=== PATIENT | female | born 1995 | race Hispanic/Latino ===

== ENCOUNTER 2022-06-23 19:43 | Inpatient (IN) | payer OTHER ==
[2022-06-23] MEDS ORDERED: NALOXONE 0.4 MG/1 ML INJ IV PRN (20:36)
[2022-06-23] MEDS ORDERED: miSOPROStol 200 MCG TAB PR PRN (20:36)
[2022-06-23] MEDS ORDERED: PROMETHAZINE 25 MG TAB PO PRN (20:36)
[2022-06-23] MEDS ORDERED: ACETAMINOPHEN 325 MG TAB PO PRN (20:36)
[2022-06-23] MEDS ORDERED: ONDANSETRON 4 MG/2 ML INJ IV PRN (20:36)
[2022-06-23] MEDS ORDERED: OXYTOCIN 10 UNIT/1 ML INJ IM PRN (20:36)
[2022-06-23] MEDS ORDERED: CARBOPROST TROMETHAMINE 250 MCG/1 ML INJ IM PRN (20:36)
[2022-06-23] MEDS ORDERED: BUTORPHANOL 2 MG/1 ML INJ IV PRN (20:36)
[2022-06-23] MEDS ORDERED: METHYLERGONOVINE MALEATE 0.2 MG/ML VIAL IM PRN (20:36)
[2022-06-23] MEDS ORDERED: TERBUTALINE 1 MG/1 ML INJ SUB-Q PRN (20:36)
[2022-06-23] MEDS ORDERED: LOPERAMIDE 2 MG CAP PO PRN (20:36)
[2022-06-23] MEDS ORDERED: LIDOCAINE (2%) 20 MG/1 ML VIAL 20 ML MDV INFILTRATI ONE (20:36)
[2022-06-23] MEDS ORDERED: MINERAL OIL 30 ML ORAL LIQD PO PRN (20:36)
[2022-06-23] MEDS ORDERED: DINOPROSTONE 10 MG VAG SUPP VG SCH (20:36)
--- NOTE | 2022-06-23 20:41 | History and Physical Report ---
History of Present Illness Date of examination: 06/23/22 Date of admission: 06/23/2022 Chief complaint: IOL History of present illness: Pt is a @ 41.3 wks, IOL d/t postdates. She has a history VSD (ventricular septal defect), was followed until 2008 and was then told that she needed no additional follow up. She has had no cardiac complaints this . Her cardiac work up this had no significant abnormalities but cardiology recommended the following: cleared for vaginal delivery monitor for arrhythmia epidural ok medical illustrator evaluation advised 2 days monitor closely for fluid overload telemetry preferred limit NSAIDs FU echo 4-6wks EDC Confirmation: 06/13/2022 Gestational Age: 41.3 weeks on admission Past History : 1 Term Births: 0 Premature Births: 0 Living Children: 0 Para: 0 Mult. Births: 0 Prev : 0 Aborta: 0 Elect. Ab: 0 Spont. Ab: 0 Ectopics: 0 Past Medical History: Reviewed and updated today: Valvular Heart Disease Past Surgical History: Reviewed and updated today: negative Family History Summary: Mother - Has Family History of Diabetes - Entered On: 12/17/2021 MGF - Has Family History of Diabetes - Entered On: 12/17/2021 Social History: Patient is single Smoking History: Patient has never smoked. 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 % Sun Exposure: frequently Family History Risk Factors: Family History of MO in 1 Female Relative Age < 65: no Family History of MO in 1 Male Relative Age < 55: no No Dietary Counseling Reason: pn yes Past Medical History Anesthesia Complications: negative Anemia: negative Autoimmune Disorder: negative Bleeding Disorder: negative Blood Transfusions: negative Breast Disease: negative Diabetes: negative Heart Disease: negative Hypertension: negative Hepatitis/Liver Disease: negative Kidney Disease/UTI: negative Neurologic/Epilepsy/Migraines: negative Phlebitis/Varicosities: negative Psychiatric: negative Pulmonary Disease/Asthma: negative Thyroid Disease: negative Hospitalizations: negative Surgery (Non-customer support coordinator): negative Abnormal PAP: negative CARO Exposure: negative Infertility: negative Uterine Anomaly: negative Uterine Surgery (not C/S): negative Other Gynecologic Problems: negative Social Hx: Patient is single Smoking History: Patient has never smoked. Infection History Hx of STD: chlamydia HIV Risk Eval: no Hepatitis B Risk Eval: low risk Personal hx. of genital herpes: no Partner hx. of genital herpes: no Rash, Viral, or Febrile illness since last LMP? no Varicella/Chicken Pox Status: No TB Risk: no Genetic History Congenital Heart Defect: Mom: yes Dad: no Comments: Patient Jerrell Disease: Mom: no Dad: no Thalassemia Mom: no Dad: no Neural Tube Defect Mom: no Dad: no Down's Syndrome Mom: no Dad: no Toribio-Sachs Mom: no Dad: no Sickle Cell Disease/Trait Mom: no Dad: no Hemophilia Mom: no Dad: no Muscular Dystrophy Mom: no Dad: no Cystic Fibrosis Mom: no Dad: no Jakob Chorea Mom: no Dad: no Mental Retardation Mom: no Dad: no Fragile X Mom: no Dad: no Other Genetic/Chromosomal Disorder Mom: no Dad: no Child w/other defect Mom: no Dad: no Enviromental Exposures Xray Exposure: no Medication, drug, or alcohol use since LMP: no Chemical/Other Exposure: no Exposure to Cat Liter: yes Hx of Parvovirus (Fifth Disease): no Occupational Exposure to Children: none Active Medications (reviewed today): None Current Allergies (reviewed today): No known allergies Past History Past Medical History: other (Ventral Spetal Defect) Past Surgical History: no surgical history Family/Genetic History: none Social history: no significant social history - Obstetrical History Expected Date of Delivery: 06/13/22 Actual Gestation: 41 Week(s) 4 Day(s) : 1 Para: 0 Hx # Term Pregnancies: 0 Number of Pregnancies: 0 Spontaneous Abortions: 0 Induced : 0 Number of Living Children: 0 Medications and Allergies Allergies Allergy/AdvReac Type Severity Reaction Status Date / Time No Known Allergies Allergy Verified 06/23/22 20:49 Review of Systems All systems: negative - Vital Signs Vital signs: Vital Signs Temp Pulse BP 98.1 F 82 112/62 06/23/22 20:32 06/23/22 20:32 06/23/22 20:32 Temp Pulse Resp BP Pulse Ox 98.1 F 82 112/62 06/23/22 20:32 06/23/22 20:32 06/23/22 20:32 Pt denies chest pain, feeling lightheaded/dizzy, and short of breath. - Physical Exam Cardiovascular: Regular rate Lungs: Positive: Normal air movement Abdomen: Positive: normal appearance, soft Genitourinary (Female): Positive: normal external genitalia, normal perenium Vulva: both: normal Uterus: Positive: enlarged (Normal for 41 week gestation. ) Extremities: Positive: normal - Obstetrical FHR: category 1 Uterine Contraction Monitor Mode: External Cervical Dilatation: 1.5 (Per electrophysiology tech) Cervical Effacement Percentage: 50 station: -2 Uterine Contraction Pattern: Irregular Uterine Tone Measurement Phase: Resting Uterine Contraction Intensity: Mild Results Result Diagrams: 06/23/22 20:45 All other labs normal GBS NEGATIVE HBsAg Screen Negative Negative *1 RPR Non Reactive Non Reactive *2 Rubella Antibodies, IgG [L] <0.90 index Immune >0.99 *3 Non-immune <0.90 Equivocal 0.90 - 0.99 Immune >0.99 ABO Grouping O *4 Rh Factor Positive *5 Please note: Prior records for this patient's ABO / Rh type are not available for additional verification. Tests: (4) Toxoplasma Abs IgG/IgM ([id number]) ! Toxoplasma gondii Ab,IgG <3.0 IU/mL 0.0-7.1 *58 Negative <7.2 Equivocal 7.2 - 8.7 Positive >8.7 ! Toxoplasma gondii Ab,IgM <3.0 AU/mL 0.0-7.9 *59 Negative <8.0 Equivocal 8.0 - 9.9 Positive >9.9 ! Comments TOXOA *60 No serological evidence of infection with Toxoplasma. If symptoms persist, submit a new specimen after three weeks. Tests: (5) HB Solu + Rflx [facility] ([id number]) Hemoglobin (Hgb) Solubility Negative Negative *61 Tests: (6) HIV Ab/p24 Ag with Reflex ([id number]) HIV Ab/p24 Ag Screen Non Reactive Non Reactive *62 HIV Negative HIV-1/HIV-2 antibodies and HIV-1 p24 antigen were NOT detected. There is no laboratory evidence of HIV infection. Tests: (7) Varicella-Zoster V Ab, IgG ([id number]) ! Varicella Zoster IgG 292 index Immune >165 *63 Negative <135 Equivocal 135 - 165 Positive >165 A positive result generally indicates exposure to the pathogen or administration of specific immunoglobulins, but it is not indication of active infection or stage of disease. Tests: (8) Varicella-Zoster Ab, IgM ([id number]) ! Varicella-Zoster Ab, IgM [H] 1.20 index 0.00-0.90 *64 Negative <0.91 Borderline 0.91 - 1.09 Positive >1.09 Tests: (9) HCV Antibody reflex to MARICHUY ([id number]) HCV Ab <0.1 s/co ratio 0.0-0.9 *65 Tests: (10) Interpretation: ([id number]) ! Interpretation: SPRCS *66 Negative Not infected with HCV, unless recent infection is suspected or other evidence exists to indicate HCV infection. Assessment and Plan A: 27 y.o. @ 41.3 wks, postdates IOL. History of ventricular septal defect. Rubella non-immune. - Patient Problems (1) Rubella non-immune status, antepartum Current Visit: Yes Status: Acute Plan to address problem: Vaccine . (2) with 41 completed weeks gestation Current Visit: Yes Status: Acute Plan to address problem: Admit to labor and delivery. Initiate IV. Draw admission labs. Pain management: IV pain medication, epidural when desired. Start IOL: Cervidil. (3) History of ventricular septal defect Current Visit: Yes Status: Acute Plan to address problem: Cardiology recommendations: cleared for vaginal delivery monitor for arrhythmia epidural ok medical illustrator evaluation advised 2 days monitor closely for fluid overload telemetry preferred limit NSAIDs FU echo 4-6wks Anesthesia aware of patient admitted for IOL. - Has evaluated patient.
[2022-06-23] MEDS ORDERED: OXYTOCIN DRIP 30 UNITS/500 ML BAG IV SCH (21:00)
[2022-06-23 21:10] LABS: Hemoglobin 12.1 gm/dl (10.1-14.3); Mean Corpuscular HGB Conc 33 % (30-34); Mean Corpuscular Volume 93 fl (79-97); Platelet Count 295 K/mm3 (140-440); Red Blood Count 3.99 M/mm3 (3.65-5.03); Red Cell Distribution Width 14.6 % (13.2-15.2)
--- NOTE | 2022-06-23 22:41 | Event Note ---
Date: 06/23/22 Cervical exam unchanged. Cervidil placed @ 2234. Some coaching required to place medication as patient was not able to tolerate exam.
[2022-06-23] MEDS: LACTATED RINGERS 1,000 ML IV SCH (22:51)
[2022-06-23] MEDS: fentaNYL 100 MCG/2 ML INJ IV PRN (22:52)
[2022-06-24] MEDS: fentaNYL 100 MCG/2 ML INJ IV PRN (01:26)
[2022-06-24] MEDS ORDERED: ePHEDrine SULFATE 50 MG/1 ML INJ IV PRN (03:49)
[2022-06-24] MEDS ORDERED: NALOXONE 0.4 MG/1 ML INJ IV PRN ×2 (03:49→19:27)
--- NOTE | 2022-06-24 03:53 | Anesthesia Consultation ---
Anesthesia Consult and Med Hx Date of service: 06/24/22 - Airway Anesthetic Teeth Evaluation: Poor ROM Head & Neck: Adequate Mental/Hyoid Distance: Adequate Mallampati Class: Class II Intubation Access Assessment: Probably Good - Pulmonary Exam CTA: Yes - Cardiac Exam Cardiac Exam: RRR - Pre-Operative Health Status ASA Pre-Surgery Classification: ASA3 Proposed Anesthetic Plan: Epidural - Pre-Anesthesia Comment Pre-Anesthesia Comments: She has a history VSD (ventricular septal defect), was followed until 2008 and was then told that she needed no additional follow up. She has had no cardiac complaints this . Her cardiac work up this had no significant abnormalities - Pulmonary Hx Smoking: No Hx Asthma: No COPD: No Hx Pneumonia: No - Cardiovascular System Hx Hypertension: No Hx Valvular Heart Disease: Yes (VSD ) Hx Heart Murmur: Yes - Central Nervous System Hx Seizures: No Hx Psychiatric Problems: No - Endocrine Hx Renal Disease: No Hx End Stage Renal Disease: No Hx Hypothyroidism: No Hx Hyperthyroidism: No - Hematic Hx Anemia: No Hx Sickle Cell Disease: No - Other Systems Hx Alcohol Use: No Hx Substance Use: No Hx Obesity: Yes
[2022-06-24] MEDS ORDERED: fentaNYL-BUPIV 2 MCG/ML-0.125% 200 MCG/100 ML BAG EPIDURAL SCH (04:00)
[2022-06-24] MEDS: ePHEDrine SULFATE 50 MG/1 ML INJ IV PRN ×3 (04:27→06:20)
--- NOTE | 2022-06-24 04:39 | Progress Note ---
Labor Epidural - Labor Epidural Start Time: 04:04 Stop Time: 04:15 Performed by:: RANDALL HANCOCK Procedure: Patient is requesting epidural for labor pain. H&P and labs reviewed. Procedure explained, questions answered, consent obtained. Patient placed in sitting position with monitors applied. Timeout performed immediately before start of procedure. Prep/drape in usual sterile fashion. Skin localized 3 mL 1% lidocaine at L[3]-L[4] interspace. 17-gauge Touhy epidural needle advanced to MARIA T with saline at [6] cm x 1 attempt. No blood/CSF noted via epidural needle. Epidural catheter advanced to [10] cm. Negative aspiration for blood and CSF via catheter, negative response to test dose 3 ml 1.5% lidocaine w/ Epi. Sterile dressing applied followed by tape reinforcement. Patient tolerated procedure well. No immediate complications noted.
--- NOTE | 2022-06-24 06:32 | Progress Note ---
Assessment and Plan A: 27 y.o. @ 41.4 wks, IOL d/t postdates. Labor. Hx of VSD. - Patient Problems (1) Rubella non-immune status, antepartum Current Visit: Yes Status: Acute Plan to address problem: Vaccine . (2) with 41 completed weeks gestation Current Visit: Yes Status: Acute Plan to address problem: Initiate Pitocin per protocol. Anticipate . Consider AROM at next cervical exam. (3) History of ventricular septal defect Current Visit: Yes Status: Acute Plan to address problem: Cardiology consult for after delivery placed. Recommendations from outpatient cardiology in H&P. Continue to monitor for s/sx of cardiac decompensation. Subjective - Subjective Date of service: 06/24/22 Principal diagnosis: IUP @ 41. 4 wks, labor, epidural, hx of VSD Interval history: Pt comfortable with epidural. Continues to deny chest pain, shortness of breath and feeling lightheaded or dizzy. Patient reports: movement normal, no new complaints, no loss of fluid, no vaginal bleeding, no contractions Objective - Vital Signs Vital Signs: Vital Signs - 12hr 06/23/22 06/23/22 06/23/22 20:32 20:47 20:52 Temperature 98.1 F Pulse Rate 82 85 91 H Blood Pressure 112/62 O2 Sat by Pulse 99 99 Oximetry 06/23/22 06/23/22 06/23/22 20:57 21:02 21:07 Temperature Pulse Rate 73 79 71 Blood Pressure O2 Sat by Pulse 98 99 99 Oximetry 06/23/22 06/23/22 06/23/22 21:12 21:17 21:22 Temperature Pulse Rate 72 75 72 Blood Pressure 105/69 O2 Sat by Pulse 99 98 99 Oximetry 06/23/22 06/23/22 06/23/22 21:27 21:36 21:41 Temperature Pulse Rate 67 82 84 Blood Pressure O2 Sat by Pulse 99 99 98 Oximetry 06/23/22 06/23/22 06/23/22 21:46 21:51 21:56 Temperature Pulse Rate 77 84 81 Blood Pressure O2 Sat by Pulse 98 98 98 Oximetry 06/23/22 06/23/22 06/23/22 22:01 22:06 22:11 Temperature Pulse Rate 79 97 H 100 H Blood Pressure O2 Sat by Pulse 98 96 98 Oximetry 07/06/23/22 06/23/22 22:33 22:38 22:40 Temperature Pulse Rate 83 82 88 Blood Pressure 115/57 O2 Sat by Pulse 98 99 Oximetry 06/23/22 06/23/22 06/23/22 22:43 22:48 22:53 Temperature Pulse Rate 70 76 95 H Blood Pressure O2 Sat by Pulse 98 99 97 Oximetry 06/23/22 06/23/22 06/23/22 22:58 23:03 23:08 Temperature Pulse Rate 109 H 107 H 96 H Blood Pressure O2 Sat by Pulse 96 95 96 Oximetry 06/23/22 06/23/22 06/23/22 23:13 23:18 23:23 Temperature Pulse Rate 99 H 91 H 82 Blood Pressure O2 Sat by Pulse 97 96 98 Oximetry 06/23/22 06/23/22 06/23/22 23:28 23:33 23:38 Temperature Pulse Rate 88 92 H 88 Blood Pressure O2 Sat by Pulse 98 96 98 Oximetry 06/23/22 06/23/22 06/23/22 23:40 23:43 23:48 Temperature Pulse Rate 94 H 87 75 Blood Pressure 110/72 O2 Sat by Pulse 97 96 Oximetry 06/23/22 06/23/22 06/24/22 23:53 23:58 00:03 Temperature Pulse Rate 92 H 85 79 Blood Pressure O2 Sat by Pulse 95 97 96 Oximetry 06/24/22 06/24/22 06/24/22 00:08 00:13 00:18 Temperature Pulse Rate 90 99 H 85 Blood Pressure O2 Sat by Pulse 97 97 98 Oximetry 06/24/22 06/24/22 06/24/22 00:23 00:28 00:33 Temperature Pulse Rate 92 H 77 81 Blood Pressure O2 Sat by Pulse 98 97 98 Oximetry 06/24/22 06/24/22 06/24/22 00:38 00:40 00:43 Temperature Pulse Rate 81 82 79 Blood Pressure 115/70 O2 Sat by Pulse 98 99 Oximetry 06/24/22 06/24/22 06/24/22 00:48 00:53 00:58 Temperature Pulse Rate 103 H 79 78 Blood Pressure O2 Sat by Pulse 97 96 97 Oximetry 06/24/22 06/24/22 06/24/22 01:03 01:08 01:21 Temperature Pulse Rate 85 99 H 102 H Blood Pressure O2 Sat by Pulse 98 98 98 Oximetry 06/24/22 06/24/22 06/24/22 01:26 01:31 01:36 Temperature Pulse Rate 92 H 103 H 95 H Blood Pressure O2 Sat by Pulse 98 96 97 Oximetry 06/24/22 06/24/22 06/24/22 01:41 01:46 01:51 Temperature Pulse Rate 90 87 92 H Blood Pressure 109/60 O2 Sat by Pulse 97 97 97 Oximetry 06/24/22 06/24/22 06/24/22 01:56 02:01 02:06 Temperature Pulse Rate 106 H 83 87 Blood Pressure O2 Sat by Pulse 95 96 97 Oximetry 06/24/22 06/24/22 06/24/22 02:11 02:16 02:21 Temperature Pulse Rate 74 86 83 Blood Pressure O2 Sat by Pulse 98 97 98 Oximetry 06/24/22 06/24/22 06/24/22 02:26 02:29 02:31 Temperature Pulse Rate 84 100 H 86 Blood Pressure O2 Sat by Pulse 97 94 97 Oximetry 06/24/22 06/24/22 06/24/22 02:36 02:40 02:41 Temperature Pulse Rate 75 85 89 Blood Pressure 119/75 O2 Sat by Pulse 99 97 Oximetry 06/24/22 06/24/22 06/24/22 02:46 02:51 02:56 Temperature Pulse Rate 90 69 90 Blood Pressure O2 Sat by Pulse 97 98 96 Oximetry 06/24/22 06/24/22 06/24/22 03:01 03:06 03:11 Temperature Pulse Rate 79 74 71 Blood Pressure O2 Sat by Pulse 96 98 98 Oximetry 06/24/22 06/24/22 06/24/22 03:16 03:19 03:21 Temperature Pulse Rate 81 88 77 Blood Pressure O2 Sat by Pulse 98 92 98 Oximetry 06/24/22 06/24/22 06/24/22 03:26 03:31 03:36 Temperature Pulse Rate 96 H 90 90 Blood Pressure O2 Sat by Pulse 98 98 98 Oximetry 06/24/22 06/24/22 06/24/22 03:41 03:46 03:51 Temperature Pulse Rate 99 H 88 86 Blood Pressure 116/59 O2 Sat by Pulse 97 97 97 Oximetry 06/24/22 06/24/22 06/24/22 04:02 04:07 04:12 Temperature Pulse Rate 106 H 99 H 102 H Blood Pressure O2 Sat by Pulse 96 96 97 Oximetry 06/24/22 06/24/22 06/24/22 04:14 04:17 04:19 Temperature Pulse Rate 78 95 H 97 H Blood Pressure 93/65 97/61 O2 Sat by Pulse 97 Oximetry 06/24/22 06/24/22 06/24/22 04:22 04:25 04:27 Temperature Pulse Rate 116 H 113 H 107 H Blood Pressure 87/53 83/54 O2 Sat by Pulse 96 97 Oximetry 06/24/22 06/24/22 06/24/22 04:30 04:32 04:34 Temperature Pulse Rate 118 H 124 H 122 H Blood Pressure 108/61 104/55 O2 Sat by Pulse 96 Oximetry 06/24/22 06/24/22 06/24/22 04:37 04:40 04:42 Temperature Pulse Rate 129 H 115 H 117 H Blood Pressure 95/54 89/54 O2 Sat by Pulse 96 95 Oximetry 06/24/22 06/24/22 06/24/22 04:43 04:46 04:47 Temperature Pulse Rate 116 H 114 H 111 H Blood Pressure 96/56 94/55 O2 Sat by Pulse 95 Oximetry 06/24/22 06/24/22 06/24/22 04:49 04:52 04:57 Temperature Pulse Rate 114 H 113 H 118 H Blood Pressure O2 Sat by Pulse 92 94 95 Oximetry 06/24/22 06/24/22 06/24/22 05:02 05:07 05:12 Temperature Pulse Rate 107 H 105 H 94 H Blood Pressure 94/53 O2 Sat by Pulse 93 94 95 Oximetry 06/24/22 06/24/22 06/24/22 05:16 05:17 05:22 Temperature Pulse Rate 96 H 95 H 95 H Blood Pressure 93/50 O2 Sat by Pulse 96 97 Oximetry 06/24/22 06/24/22 06/24/22 05:27 05:31 05:32 Temperature Pulse Rate 82 96 H 98 H Blood Pressure 90/54 O2 Sat by Pulse 95 96 Oximetry 06/24/22 06/24/22 06/24/22 05:37 05:42 05:47 Temperature Pulse Rate 96 H 94 H 77 Blood Pressure O2 Sat by Pulse 97 96 96 Oximetry 06/24/22 06/24/22 06/24/22 05:48 05:52 05:57 Temperature Pulse Rate 76 74 87 Blood Pressure 86/50 O2 Sat by Pulse 96 96 Oximetry 06/24/22 06/24/22 06/24/22 06:02 06:07 06:12 Temperature Pulse Rate 72 88 99 H Blood Pressure 99/54 O2 Sat by Pulse 96 100 100 Oximetry 06/24/22 06/24/22 06/24/22 06:17 06:22 06:23 Temperature Pulse Rate 82 79 77 Blood Pressure 83/47 88/53 O2 Sat by Pulse 100 100 Oximetry 06/24/22 06:27 Temperature Pulse Rate 77 Blood Pressure O2 Sat by Pulse 100 Oximetry - Exam Narrative Exam: Some decelerations noted after placement of epidural. Her blood pressures were noted to be in the 80's/50's. Ephedrine was given IV and Anesthesia at bedside evaluating patient. Pt was also turned to left lateral position. heart rate returns to baseline after interventions. Cardiovascular: Regular rate Lungs: Normal air movement Abdomen: Present: normal appearance, soft Vulva: both: normal FHR: category 2 (Periods of category 2 d/t low blood pressures) Cervical Dilatation: 5 (BBOW) Cervical Effacement Percentage: 90 station: -2 Uterine Contraction Pattern: Regular Uterine Tone Measurement Phase: Resting Uterine Contraction Intensity: Moderate - Labs Labs: Abnormal Labs 06/23/22 20:45 WBC 14.3 H Laboratory Results - last 24 hr 06/23/22 06/23/22 06/23/22 20:45 20:45 20:45 WBC 14.3 H RBC 3.99 Hgb 12.1 Hct 37.0 MCV 93 MCH 30 MCHC 33 RDW 14.6 Plt Count 295 Syphilis IgG/IgM Ab Nonreactive Blood Type O POSITIVE Antibody Screen Negative
[2022-06-24] MEDS: LACTATED RINGERS 1,000 ML IV SCH (07:55)
[2022-06-24] MEDS ORDERED: OXYTOCIN DRIP 30,000 MILLIUNITS/500 ML BAG IV ONE (09:00)
--- NOTE | 2022-06-24 13:22 | Consultation ---
History of Present Illness Consult date: 06/24/22 Requesting physician: JETT ARTHUR Consult reason: other (hx of VSD) History of present illness: Patient is a 26 year old woman with a history of a small VSD and PDA that have resolved who was in the hospital for and here to give . Patient is previously unknown to our practice however she follows with Dr. Gregory Samson of [facility]. Patient was seen due to her history of VSD and it was recommended that the patient should be able to tolerate either and tolerate vaginal delivery. Cardiology is currently consulted because Dr. Samson suggested that patient " has a small increase chance of volume overload 2 or 3 days postop" and suggested it might be beneficial to have cardiology evaluate patient's volume status. Kristelnet currently denies any c omplaints including shortness of breath, bilateral lower extremity edema, chest pain, or orthopnea. Past History Past Medical History: other (VSD) Past Surgical History: Other (Hand surgery) Social history: no significant social history Family history: no significant family history Medications and Allergies Allergies Allergy/AdvReac Type Severity Reaction Status Date / Time No Known Allergies Allergy Verified 06/23/22 20:49 Active Meds: Active Medications Acetaminophen (Acetaminophen 325 Mg Tab) 650 mg PO Q4H PRN PRN Reason: Pain, Mild (1-3) Butorphanol Tartrate (Butorphanol 2 Mg/1 Ml Inj) 1 mg IV Q2H PRN PRN Reason: Pain, Moderate(4-6) LABOR PAIN Carboprost Tromethamine (Carboprost Tromethamine 250 Mcg/1 Ml Inj) 250 mcg IM ONCE PRN PRN Reason: Uterine Bleeding Dinoprostone (Dinoprostone 10 Mg Vag Supp) 10 mg VG ONCE EHSAN Last Admin: 06/23/22 22:34 Dose: 10 mg Fentanyl (Fentanyl 100 Mcg/2 Ml Inj) 100 mcg IV Q2H PRN PRN Reason: Pain,Severe (7-10) LABOR PAIN Last Admin: 06/24/22 01:26 Dose: 100 mcg Lactated Ringer's (Lactated Ringers) 1,000 mls @ 125 mls/hr IV DIRECT EHSAN Last Admin: 06/24/22 07:55 Dose: 75 mls/hr Oxytocin/Sodium Chloride (Pitocin/Ns 30 Unit/500ml) 30 units in 500 mls @ 40 mls/hr IV TITR EHSAN; Protocol Fentanyl/Bupivacaine/Sodium Chlor (Fentanyl-Bupiv 2 Mcg/Ml-0.125%) 200 mcg in 100 mls @ 12 mls/hr EPIDURAL TITR EHSAN; Protocol Last Admin: 06/24/22 05:03 Dose: 12 mls/hr Oxytocin/Sodium Chloride (Pitocin/Ns 30 Unit/500ml) 30,000 milliunits in 500 mls @ 2 mls/hr IV DIRECT ONE; Protocol Stop: 07/04/22 18:59 Last Admin: 06/24/22 08:45 Dose: 2 milliunits/min, 2 mls/hr Loperamide HCl (Loperamide 2 Mg Cap) 2 mg PO ONCE PRN PRN Reason: give with Hemabate Methylergonovine Maleate (Methylergonovine Maleate 0.2 Mg/Ml Vial) 0.2 mg IM ONCE PRN PRN Reason: Uterine Bleeding Mineral Oil (Mineral Oil 30 Ml Oral Liqd) 30 ml PO QHS PRN PRN Reason: Constipation Misoprostol (Misoprostol 200 Mcg Tab) 800 mcg VA ONCE PRN PRN Reason: Uterine Bleeding Naloxone HCl (Naloxone 0.4 Mg/1 Ml Inj) 0.2 mg IV Q5MIN PRN PRN Reason: Respiratory sedation Ondansetron HCl (Ondansetron 4 Mg/2 Ml Inj) 4 mg IV Q8H PRN PRN Reason: Nausea And Vomiting Oxytocin (Oxytocin 10 Unit/1 Ml Inj) 10 unit IM ONCE PRN PRN Reason: Uterine Bleeding Promethazine HCl (Promethazine 25 Mg Tab) 25 mg PO Q6H PRN PRN Reason: Nausea And Vomiting Terbutaline Sulfate (Terbutaline 1 Mg/1 Ml Inj) 0.25 mg SUB-Q ONCE PRN PRN Reason: Hyperstimulation/Hypertonicity Review of Systems Constitutional: no weight loss, no weight gain, no fever Ears, nose, mouth and throat: no sinus pressure, no sinus pain Cardiovascular: no chest pain, no orthopnea, no palpitations, no edema, no shortness of breath, no dyspnea on exertion Respiratory: no shortness of breath, no dyspnea on exertion Gastrointestinal: no abdominal pain, no nausea, no vomiting Musculoskeletal: no neck stiffness, no neck pain Integumentary: no rash, no pruritis, no redness Neurological: no head injury, no transient paralysis Psychiatric: no anxiety, no memory loss Endocrine: no cold intolerance, no heat intolerance Physical Examination Vital Signs Temp Pulse BP 98.1 F 82 112/62 06/23/22 20:32 06/23/22 20:32 06/23/22 20:32 General appearance: no acute distress Neck: Positive: trachea midline Cardiac: Positive: Regular Rhythm, Tachycardia Lungs: Positive: Normal Breath Sounds Neuro: Positive: Grossly Intact Abdomen: Positive: Soft Skin: Negative: Rash, Suspicious Lesions, Ulceration Extremities: Present: upper extr. pulses. Absent: edema Results 06/23/22 20:45 CBC 06/23/22 Range/Units 20:45 WBC 14.3 H (4.5-11.0) K/mm3 RBC 3.99 (3.65-5.03) M/mm3 Hgb 12.1 (10.1-14.3) gm/dl Hct 37.0 (30.3-42.9) % Plt Count 295 (140-440) K/mm3 - Imaging and Cardiology Echo: report reviewed Assessment and Plan Patient is a 26 year old woman with a history of a small VSD and PDA that have resolved who was in the hospital for and here to give with 41-week gestation History of VSD Echo 04/09/2022 -no residual VSD noted by color Doppler. The aortic valve is thickened with partial fusion of the left and right leaflets. Mild aortic stenosis. Mild aortic valve insufficiency. The LV is normal in size. The LVEDV is 95 ml and index is 56 ml/m2. The LV GLS is -17.5%. The LVOT VTI is 23 cm. Left ventricular ejection fraction is 65%. Overall left ventricular systolic function is normal. LA volume is 58 ml and index is 36 ml/m2. LAP is estimated a t 11 mmHg by E/e'. LA reservoir strain is 35%. Mild tricuspid regurgitation. RVSP is estimated at 27 mmHg. The RV GLS is -29.8%, RV free wall LS -38.1% and TAPSE is 2.5 cm. The mitral valve is restricted and arcade in appearance. Mild mitral stenosis, Mean gradient through the mitral valve of 5 mmHg with heart rate of 90 bpm. Plan: Patient appears euvolemic on exam. Patient denies any complaint of shortness of breath, bilateral lower extremity edema, dyspnea on exertion, Per documentation he was suggested to monitor the patient 2 to 3 days after delivery patient at this time so has not delivered baby Recommend close monitoring patient's volume status Follow previous recommendations from patient's primary scenic arts supervisor Will reassess patient following delivery Patient seen in conjunction with Dr Karimi who agrees with this plan of care - Patient Problems (1) History of ventricular septal defect Current Visit: Yes Status: Acute (2) with 41 completed weeks gestation Current Visit: Yes Status: Acute (3) Rubella non-immune status, antepartum Current Visit: Yes Status: Acute
[2022-06-24] MEDS ORDERED: FAMOTIDINE 20 MG/2 ML INJ IV ONE (13:41)
[2022-06-24] MEDS ORDERED: BICITRA ORAL LIQD 30ML PO ONE (13:41)
[2022-06-24] MEDS ORDERED: METOCLOPRAMIDE 10 MG/2 ML INJ IV ONE (13:41)
[2022-06-24] MEDS ORDERED: AZITHROMYCIN/NS 500 MG/250 ML 500 MG/250 ML BAG IV ONE (13:41)
[2022-06-24] MEDS ORDERED: LACTATED RINGERS 1,000 ML IV SCH (13:45)
--- NOTE | 2022-06-24 13:45 | Event Note ---
Date: 06/24/22 To patient room for recurrent late decelerations. SVE /+. Recurrent late decels down to the 70s with slow recovery to minimal variability despite oxygen, turning and pitocin off. Findings reviewed with patient. Discussed possible delivery via C/S. Risks reviewed with patient and she desires to proceed. To OR for urgent C/S.
[2022-06-24] MEDS ORDERED: miSOPROStol 200 MCG TAB ONE (13:56)
[2022-06-24] MEDS ORDERED: CARBOPROST TROMETHAMINE 250 MCG/1 ML INJ IM ONE (13:57)
[2022-06-24] MEDS ORDERED: ceFAZolin/Water 2 GM/20 ML 2 GM/20 ML SYRINGE IV NR (14:00)
[2022-06-24] MEDS ORDERED: OXYTOCIN DRIP 30 UNITS/500 ML BAG IV SCH ×2 (14:00→19:27)
[2022-06-24] MEDS ORDERED: ceFAZolin/STERILE WATER 2 GM/20 ML SYRINGE IV ONE (14:20)
[2022-06-24] MEDS ORDERED: SODIUM CHLORIDE 0.9% IRR 1,500 ML BOTTLE IR ONE (14:30)
[2022-06-24] MEDS ORDERED: WATER FOR IRRIG STERILE 1,500 ML BOTTLE IR ONE (14:30)
[2022-06-24] MEDS ORDERED: dexAMETHasone 20 MG/5 ML VIAL ONE (15:07)
[2022-06-24] MEDS ORDERED: BUPIVACAINE/PF (0.25%) 2.5 MG/ML 30 ML VIAL INFILTRATI ONE (15:07)
[2022-06-24] MEDS ORDERED: ONDANSETRON 4 MG/2 ML INJ ONE (15:07)
[2022-06-24] MEDS ORDERED: OXYTOCIN 10 UNIT/1 ML INJ ONE (15:10)
[2022-06-24] MEDS ORDERED: KETOROLAC 30 MG/1 ML INJ ONE (15:39)
--- NOTE | 2022-06-24 15:59 | Anesthesia Day of Surgery ---
Anesthesia Day of Surgery - Day of Surgery Patient Examined: Yes Patient H&P Reviewed: Yes Patient is NPO: Yes
--- NOTE | 2022-06-24 16:01 | Progress Note ---
Regional Anesthesia Block - Regional Anesthesia Block Start Time: 15:42 Stop Time: 15:47 Performed By:: RANDALL HANCOCK Procedure: Patient consented for TAP block for post surgical pain management. Patient identified, monitors placed, and time out performed. TAP identified bilaterally via ultrasound. Skin prepped bilaterally with [chlorhexidine] and [22g stimuplex] needle advanced to the TAP. [Marcaine 0.22% 35ml] injected under ultrasound guidance on the [left] side. [Marcaine 0.22% 35ml] injected under ultrasound guidance on the [right] side. Negative aspiration every 5mL, No change in heart rate or rhythm. Patient tolerated the procedure well. No apparent complications seen.
--- NOTE | 2022-06-24 16:04 | Operative Report ---
Operative Report Operative Report: Date of Procedure: June 24, 2022 Preoperative diagnosis: IUP @41 weeks 4 days, nonreassuring heart trac ings, meconium Postoperative diagnosis: same, s/p primary section Procedure: Low transverse section Surgeon: Tasha Kaye MD Manometer Technician: PETE Anesthesia: Epidural Complications: none QBL: 480 ml IV Fluids: 1700 ml UOP: 600 ml, clear urine at the end of procedure Indications: nonreassuring heart tracing Findings: 3140 g female infant in left occiput posterior position cephalic presentation with Apgars 7 & 8 Amniotic fluid thick meconium stained Fallopian tubes normal in appearance Ovaries normal in appearance Procedure: The patient was taken to the operating room where epidural anesthesia was found to be adequate. 2 g Ancef and 500 g azithromycin were given prior to the procedure. She was then prepared and draped in the usual sterile fashion in the dorsal supine position with a leftward tilt. A Pfannenstiel skin incision was made with the scalpel and carried through to the underlying layer of fascia with the bovie. The fascia was incised in the midline and the incision extended laterally. The superior aspect of the fascial incision was then grasped with the Blas's clamps, elevated, and the underlying rectus muscles dissected off bluntly and with sharp dissection using bovie. Attention was then turned to the inferior aspect of this incision which, in a similar fashion, was grasped, tented up with the Blas clamps, and the rectus was dissected off bluntly and with sharp dissection. The rectus muscles were then in the midline, and the peritoneum identified and entered bluntly. The peritoneal incision was then extended superiorly and inferiorly with good visualization of the bladder. The bladder blade was then inserted and the vesicouterine peritoneum identified, grasped with the pick ups, and entered sharply with the Metzenbaum scissors. This incision was then extended laterally and the bladder flap created digitally. The bladder blade was then reinserted and the lower uterine segment incised in a transverse fashion with the scalpel. The uterine incision was then extended laterally digitally. The bladder blade was then removed and the infant was delivered via LOP position. Nuchal cord reduced. The nose and mouth were suctioned with the bulb suction and the cord clamped and cut. The infant was handed off to the waiting pediatricians.The placenta was then removed; the uterus exteriorized and cleared of all clots and debris. Uterus noted to be boggy. Pitocin and Methergine 0.2 mg given the uterine incision was repaired with 0 vicryl in a running locked fashion to obtain excellent hemostasis. An imbrication layer was done. Uterus again boggy and an additional 10 units of Pitocin given with improvement in tone. Uterus returned to the abdomen. The rectus muscle was reapproximated with 2-0 vicryl. The fascia was reapproximated with 0 vicryl in a running fashion. The skin was closed with 4-0 monocryl subcuticular stitch and the incision sealed with Steri-strips.Cytotec 800 mcg was placed rectally. The patient tolerated the procedure well. Sponge, lap, needle counts correct X 2. The patient was taken to the recovery room in a stable condition.
[2022-06-24] MEDS ORDERED: LANOLIN/ZINC/DIMETHICONE (LANSINOH) 7 GM TP PRN (19:27)
[2022-06-24] MEDS ORDERED: ONDANSETRON 4 MG/2 ML INJ IV PRN (19:27)
[2022-06-24] MEDS ORDERED: oxyCODONE /ACETAMINOPHEN 5-325MG TAB PO PRN (19:27)
[2022-06-24] MEDS ORDERED: WITCH HAZEL/ GLYCERIN PAD TP PRN (19:27)
[2022-06-24] MEDS: MORPHINE 4 MG/1 ML INJ IV PRN (20:12)
[2022-06-24] MEDS: KETOROLAC 30 MG/1 ML INJ IV SCH (22:02)
[2022-06-25] MEDS: oxyCODONE /ACETAMINOPHEN 5-325MG TAB PO PRN (01:21)
[2022-06-25] MEDS: KETOROLAC 30 MG/1 ML INJ IV SCH ×2 (03:41→08:36)
[2022-06-25 08:17] LABS: Hematocrit 31.6 % (30.3-42.9); Hemoglobin 10.2 gm/dl (10.1-14.3)
--- NOTE | 2022-06-25 09:22 | Progress Note ---
Assessment and Plan - Patient Problems (1) History of ventricular septal defect Current Visit: Yes Status: Acute Plan to address problem: -will await recommendations from cardiology -con't monitoring form now -will consult to see if pt is able to leave the floor to see baby in NICU (2) delivery delivered Current Visit: Yes Status: Acute Plan to address problem: -routine post op/ pp care -ambulate -ADAT Subjective - Subjective Date of service: 06/25/22 Principal diagnosis: POD #1 S/P1LTCS 2)H/O VSD Interval history: Pt doing well no cardiac c/o this am. She states pain is not as controlled in the iv meds. I advised that she will have po meds today now that her diet is set to regular. I d/w d/c the argueta and getting out of the bed to ambulate. She expressed understanding. I also d/w pt that we will await recommendations from cardiology regarding is she still needs continued monitoring at this time as well as if she can go to nursery to visit baby. Pt expressed understanding. All questions were addressed and answered. Patient reports: appetite normal, voiding normally (cath in place), pain well controlled, no flatus Patterson: doing well, in NICU Objective - Vital Signs Latest vital signs: Vital Signs Temp Pulse Pulse Resp BP Pulse Ox 06/25/22 08:24 98.5 F 88 101/69 97 06/25/22 05:34 98.6 F 65 20 92/52 95 06/25/22 00:08 97.8 F 48 L 20 101/51 95 06/24/22 22:00 50 L 96 06/24/22 20:09 98.8 F 57 L 20 119/43 96 06/24/22 19:42 50 L 98 06/24/22 18:35 99.1 F 59 L 123/66 95 06/24/22 18:00 98.9 F 66 17 120/67 98 06/24/22 17:00 64 15 122/69 98 06/24/22 16:45 60 16 130/65 98 06/24/22 16:30 62 15 123/71 98 06/24/22 16:15 61 18 124/62 98 06/24/22 16:05 64 16 116/68 98 06/24/22 16:00 63 17 125/67 98 06/24/22 15:55 99.3 F 64 16 119/75 98 06/24/22 14:08 106 H 100 06/24/22 14:03 85 100 06/24/22 14:02 80 115/59 06/24/22 13:58 121 H 100 06/24/22 13:53 108 H 100 06/24/22 13:48 100 H 124/71 100 06/24/22 13:43 104 H 100 06/24/22 13:38 94 H 100 06/24/22 13:33 107 H 100 06/24/22 13:32 104 H 127/60 06/24/22 13:29 85 87 06/24/22 13:28 102 H 100 06/24/22 13:23 79 100 06/24/22 13:18 74 100 06/24/22 13:16 71 96/51 06/24/22 13:13 75 100 06/24/22 13:08 75 100 06/24/22 13:03 74 100 06/24/22 13:02 78 97/52 06/24/22 12:58 89 100 06/24/22 12:53 73 100 06/24/22 12:48 80 100 06/24/22 12:46 80 94/52 06/24/22 12:43 73 100 06/24/22 12:38 77 100 06/24/22 12:33 74 100 06/24/22 12:32 71 90/50 06/24/22 12:28 80 100 06/24/22 12:23 76 100 06/24/22 12:18 77 100 06/24/22 12:17 74 91/52 06/24/22 12:13 82 100 06/24/22 12:08 79 100 06/24/22 12:03 78 100 06/24/22 12:01 70 93/50 06/24/22 11:58 80 100 06/24/22 11:53 88 100 06/24/22 11:48 77 100 06/24/22 11:46 75 92/55 06/24/22 11:43 77 100 06/24/22 11:38 85 99 06/24/22 11:33 88 91/54 99 06/24/22 11:32 89 98/50 06/24/22 11:28 93 H 100 06/24/22 11:23 87 100 06/24/22 11:18 83 100 06/24/22 11:16 82 95/52 06/24/22 11:13 80 99 06/24/22 11:08 85 100 06/24/22 11:03 84 100 06/24/22 11:01 84 92/51 06/24/22 11:00 98.9 F 06/24/22 10:58 89 100 06/24/22 10:53 85 100 06/24/22 10:48 102 H 99 06/24/22 10:46 87 89/53 06/24/22 10:43 105 H 100 06/24/22 10:38 91 H 100 06/24/22 10:33 92 H 100 06/24/22 10:31 88 89/50 06/24/22 10:28 87 100 06/24/22 10:23 102 H 100 06/24/22 10:17 94 H 99 06/24/22 10:16 100 H 92/48 06/24/22 10:13 98 H 99 06/24/22 10:08 100 H 100 06/24/22 10:03 96 H 99 06/24/22 10:02 98 H 96/52 06/24/22 09:58 102 H 99 06/24/22 09:53 125 H 100 06/24/22 09:48 129 H 107/59 06/24/22 09:47 124 H 100 06/24/22 09:43 107 H 99 06/24/22 09:37 85 99 06/24/22 09:33 88 93/53 100 06/24/22 09:28 120 H 99 06/24/22 09:22 88 100 Intake and Output 06/24/22 06/25/22 06/25/22 22:59 06:59 14:59 Intake Total 110 Output Total 700 Balance -590 Intake: IV 110 Right Hand 10 Output: Urine 700 Other: Voiding Method Indwelling Catheter Estimated Blood Loss 480 - Exam Cardiovascular: Present: Normal S1, Normal S2 Lungs: Present: Clear to auscultation, Normal air movement Abdomen: Present: normal appearance, soft, normal bowel sounds. Absent: distention, tenderness, guarding Deep Tendon Reflex Grade: Normal +2 Incision: Present: normal, dry, intact, dressed
--- NOTE | 2022-06-25 09:29 | Post Anesthesia Evaluation ---
- Post Anesthesia Evaluation Patient Participated: Yes Airway Patent: Yes Stable Respiratory Function: Yes Nausea/Vomiting: No Temp > 96.8F: Yes Pain Manageable: Yes Adequeate Hydration: Yes Anesthesia Complications: No Block Receding Appropriately: Yes Patient on Ventilator: No
[2022-06-25] MEDS: MORPHINE 4 MG/1 ML INJ IV PRN (10:03)
--- NOTE | 2022-06-25 11:47 | Progress Note ---
Assessment and Plan Patient is a 26 year old woman with a history of a small VSD and PDA that have resolved who was in the hospital for and here to give with 41-week gestation History of VSD Echo 04/09/2022 -no residual VSD noted by color Doppler. The aortic valve is thickened with partial fusion of the left and right leaflets. Mild aortic stenosis. Mild aortic valve insufficiency. The LV is normal in size. The LVEDV is 95 ml and index is 56 ml/m2. The LV GLS is -17.5%. The LVOT VTI is 23 cm. Left ventricular ejection fraction is 65%. Overall left ventricular systolic function is normal. LA volume is 58 ml and index is 36 ml/m2. LAP is estimated at 11 mmHg by E/e'. LA reservoir strain is 35%. Mild tricuspid regurgitation. RVSP is estimated at 27 mmHg. The RV GLS is -29.8%, RV free wall LS -38.1% and TAPSE is 2.5 cm. The mitral valve is restricted and arcade in appearance. Mild mitral stenosis, Mean gradient through the mitral valve of 5 mmHg with heart rate of 90 bpm. Plan: Patient s/p Patient appears euvolemic on exam. Patient denies any complaint of shortness of breath, bilateral lower extremity edema, dyspnea on exertion, Follow previous recommendations from patient's primary television presenter Cardiac status appears otherwise stable at this time Patient seen in conjunction with Dr Karimi who agrees with this plan of care - Patient Problems (1) History of ventricular septal defect Current Visit: Yes Status: Acute (2) with 41 completed weeks gestation Current Visit: Yes Status: Acute (3) Rubella non-immune status, antepartum Current Visit: Yes Status: Acute Subjective Date of service: 06/25/22 Principal diagnosis: POD #1 S/P1LTCS 2)H/O VSD Interval history: Patient resting in bed in no acute distress Patient sinus bradycardia overnight into the 50s however this a.m. patient sinus 80s to 90s Objective Vital Signs Temp Pulse Pulse Resp BP Pulse Ox 06/25/22 08:24 98.5 F 88 101/69 97 06/25/22 05:34 98.6 F 65 20 92/52 95 06/25/22 00:08 97.8 F 48 L 20 101/51 95 06/24/22 22:00 50 L 96 06/24/22 20:09 98.8 F 57 L 20 119/43 96 06/24/22 19:42 50 L 98 06/24/22 18:35 99.1 F 59 L 123/66 95 06/24/22 18:00 98.9 F 66 17 120/67 98 06/24/22 17:00 64 15 122/69 98 06/24/22 16:45 60 16 130/65 98 06/24/22 16:30 62 15 123/71 98 06/24/22 16:15 61 18 124/62 98 06/24/22 16:05 64 16 116/68 98 06/24/22 16:00 63 17 125/67 98 06/24/22 15:55 99.3 F 64 16 119/75 98 06/24/22 14:08 106 H 100 06/24/22 14:03 85 100 06/24/22 14:02 80 115/59 06/24/22 13:58 121 H 100 06/24/22 13:53 108 H 100 06/24/22 13:48 100 H 124/71 100 06/24/22 13:43 104 H 100 06/24/22 13:38 94 H 100 06/24/22 13:33 107 H 100 06/24/22 13:32 104 H 127/60 06/24/22 13:29 85 87 06/24/22 13:28 102 H 100 06/24/22 13:23 79 100 06/24/22 13:18 74 100 06/24/22 13:16 71 96/51 06/24/22 13:13 75 100 06/24/22 13:08 75 100 06/24/22 13:03 74 100 06/24/22 13:02 78 97/52 06/24/22 12:58 89 100 06/24/22 12:53 73 100 06/24/22 12:48 80 100 06/24/22 12:46 80 94/52 06/24/22 12:43 73 100 06/24/22 12:38 77 100 06/24/22 12:33 74 100 06/24/22 12:32 71 90/50 06/24/22 12:28 80 100 06/24/22 12:23 76 100 06/24/22 12:18 77 100 07/26/22 12:17 74 91/52 07/26/22 12:13 82 100 06/24/22 12:08 79 100 06/24/22 12:03 78 100 06/24/22 12:01 70 93/50 06/24/22 11:58 80 100 06/24/22 11:53 88 100 06/24/22 11:48 77 100 - Physical Examination General: No Apparent Distress HEENT: Positive: PERRL Neck: Positive: trachea midline Cardiac: Positive: Reg Rate and Rhythm Lungs: Positive: Normal Breath Sounds Neuro: Positive: Grossly Intact Abdomen: Positive: Soft Skin: Negative: Rash, Suspicious Lesions, Ulceration Extremities: Present: upper extr. pulses. Absent: edema - Labs and Meds CBC 06/25/22 Range/Units 04:36 Hgb 10.2 (10.1-14.3) gm/dl Hct 31.6 (30.3-42.9) % - Imaging and Cardiology Echo: report reviewed - Telemetry EKG Rhythm: Sinus Rhythm - EKG Sinus rhythms and dysrhythmias: sinus rhythm
[2022-06-25] MEDS: PRENATAL VIT27-FE FUMARATE-FOLIC ACID VIT TAB PO SCH (11:58)
[2022-06-25] MEDS: IBUPROFEN 800 MG TAB PO SCH ×2 (14:47→20:54)
[2022-06-26] MEDS: IBUPROFEN 800 MG TAB PO SCH ×2 (02:49→08:14)
[2022-06-26 08:09] VITALS: BP 117/66
[2022-06-26] MEDS: oxyCODONE /ACETAMINOPHEN 5-325MG TAB PO PRN (08:13)
[2022-06-26] MEDS: PRENATAL VIT27-FE FUMARATE-FOLIC ACID VIT TAB PO SCH (09:00)
--- NOTE | 2022-06-26 09:39 | Discharge Summary ---
Providers - Providers Date of Admission: 06/24/22 00:10 Date of discharge: 06/26/22 Attending physician: ORLANDO MAR 06/24/22 08:21 Consult to Cardiology [CONS] Routine Consulting Provider: JONNA HAYNES Reason For Exam: Hx VSD, cardiology rec , established pt Primary care physician: ORLANDO MAR Hospitalization Reason for admission: induction of labor Delivery: Procedure: primary low transverse Incision: normal, dry, intact Other procedures: none complications: none Discharge diagnosis: IUP at term delivered [place] baby: female Condition at discharge: Good Disposition: 01 HOME / SELF CARE / HOMELESS - Discharge Diagnoses (1) delivery delivered Status: Acute (2) History of ventricular septal defect Status: Acute Plan - Discharge Medications Prescriptions: Docusate Sodium [Colace] 100 mg PO BID #60 capsule Ibuprofen [Motrin 800 MG tab] 800 mg PO Q8HR #30 tablet oxyCODONE /ACETAMINOPHEN [Percocet 5/325] 1 tab PO Q6HR PRN #20 tablet PRN Reason: Pain Vit-Fe Fumar-FA [ Vitamin] 1 tab PO QDAY #30 tablet - Provider Discharge Summary Activity: no sex for 6 weeks, no heavy lifting 4 weeks, no strenuous exercise Diet: routine Instructions: routine Additional instructions: [] Smoking cessation referral if applicable(refer to patient education folder for contact #) [] Refer to [facility] Booklet Please make an appointment with your primary milker machine in the next 7 days. Call your doctor immediately for: * Fever > 100.5 * Heavy vaginal bleeding ( >1 pad per hour) * Severe persistent headache * Shortness of breath * Reddened, hot, painful area to leg or breast * Drainage or odor from incision. * Keep incision clean and dry at all times and follow doctor's instructions regarding bathing/showering - Follow up plan Follow up: ORLANDO MAR MD [Primary Care Provider] - 7 Days
[2022-06-26] MEDS ORDERED: MEASLES, MUMPS & RUBELLA 12,500 UNIT/0.5 ML VACCINE SUB-Q ONE (11:00)
--- NOTE | 2022-06-26 11:16 | Progress Note ---
Assessment and Plan Patient is a 26 year old woman with a history of a small VSD and PDA that have resolved who was in the hospital for and here to give with 41-week gestation History of VSD Echo 04/09/2022 -no residual VSD noted by color Doppler. The aortic valve is thickened with partial fusion of the left and right leaflets. Mild aortic stenosis. Mild aortic valve insufficiency. The LV is normal in size. The LVEDV is 95 ml and index is 56 ml/m2. The LV GLS is -17.5%. The LVOT VTI is 23 cm. Left ventricular ejection fraction is 65%. Overall left ventricular systolic function is normal. LA volume is 58 ml and index is 36 ml/m2. LAP is estimated at 11 mmHg by E/e'. LA reservoir strain is 35%. Mild tricuspid regurgitation. RVSP is estimated at 27 mmHg. The RV GLS is -29.8%, RV free wall LS -38.1% and TAPSE is 2.5 cm. The mitral valve is restricted and arcade in appearance. Mild mitral stenosis, Mean gradient through the mitral valve of 5 mmHg with heart rate of 90 bpm. Plan: Patient s/p Patient appears euvolemic on exam. Patient denies any complaint of shortness of breath, bilateral lower extremity edema, dyspnea on exertion, Follow previous recommendations from patient's primary griddle attendant Cardiac status appears otherwise stable. Will see as needed Patient should follow-up with their primary griddle attendant in 1 to 2 weeks after discharge Patient seen in conjunction with Dr Karimi who agrees with this plan of care - Patient Problems (1) History of ventricular septal defect Current Visit: Yes Status: Acute (2) with 41 completed weeks gestation Current Visit: Yes Status: Acute (3) Rubella non-immune status, antepartum Current Visit: Yes Status: Acute Subjective Date of service: 06/26/22 Principal diagnosis: POD #1 S/P1LTCS 2)H/O VSD Interval history: Patient resting in bed in no acute distress Patient trend sinus 70s to 80s on monitor Objective Vital Signs Temp Pulse Resp BP Pulse Ox 06/26/22 08:08 97.5 F L 18 117/66 06/26/22 03:04 97.9 F 75 18 103/67 97 06/25/22 23:09 98.2 F 88 14 101/65 97 06/25/22 22:55 94 07/27/22 19:18 98.8 F 94 H 16 92/48 94 06/25/22 18:16 95 H 94/55 97 06/25/22 15:59 98.0 F 104 H 96/ 96 - Physical Examination General: No Apparent Distress HEENT: Positive: PERRL Neck: Positive: trachea midline Cardiac: Positive: Reg Rate and Rhythm Lungs: Positive: Normal Breath Sounds Neuro: Positive: Grossly Intact Abdomen: Positive: Soft Skin: Negative: Rash, Suspicious Lesions, Ulceration Extremities: Present: upper extr. pulses. Absent: edema - Imaging and Cardiology Echo: report reviewed - Telemetry EKG Rhythm: Sinus Rhythm - EKG Sinus rhythms and dysrhythmias: sinus rhythm
== END 2022-06-26 12:00 | disposition home or self-care (01) | DRG 766 ==
LOC: TRG 19:43 → 4A 19:44 → APU 19:44 → LD 20:36 → TRG 06-24 00:09 → LD 06-24 00:10 → 4A 06-24 14:19 → APU 06-24 14:19 → 4A 06-24 18:54
PROVIDERS: ADMIT Obstetrics & Gynecology; ATTEND Obstetrics & Gynecology
PROC: 10D00Z1 Extraction of Products of Conception, Low, Open Approach (ICD-10-PCS; principal; 2022-06-24)
DX: O77.0 Labor and delivery complicated by meconium in amniotic fluid (principal); Z20.822 Contact with and (suspected) exposure to COVID-19; O99.214 Obesity complicating childbirth; O76 Abnormality in fetal heart rate and rhythm complicating labor and delivery; Z3A.41 41 weeks gestation of pregnancy; Z37.0 Single live birth; Z28.21 Immunization not carried out because of patient refusal
CPT/HCPCS: 36415; 59200; 85014; 85018; 85027; 86592; 86850; 86900; 86901; G0378; J3490; C1765; J0690; J1100; J1885; J2270; J2405; J2590; J2765; J3010; J7120; U0003